=== PATIENT | male | born 1990 | race African-American/Black ===

== ENCOUNTER 2020-08-13 14:26 | Emergency (ER) | payer BC ==
[~2020-08-13] VITALS: Ht 177.8 cm; Wt 72.7 kg
[~2020-08-13 14:26] MED LIST: NO HOME MEDICATIONS
[2020-08-13 14:33] VITALS: BP 124/71; TEMP 98.4
[2020-08-13] MEDS ORDERED: VALTREX 50500 MG/TAB PO (15:06)
[2020-08-13 15:15] VITALS: PULSE 80
== END 2020-08-13 15:15 | disposition home or self-care (01) ==
LOC: COL.ER 14:26
DX: B00.9 Herpesviral infection, unspecified (principal)

== ENCOUNTER 2020-10-26 18:13 | Emergency (ER) | payer BC ==
[~2020-10-26] VITALS: Ht 177.8 cm; Wt 72.7 kg
[~2020-10-26 18:13] MED LIST changes: +VALTREX 50500 MG/TAB PO
[2020-10-26 18:17] VITALS: TEMP 98.3
[2020-10-26 18:47] LABS: GRAN # 1.6 (1.4-6.5); LYMPH # 1.3 (1.2-3.4); LYMPH % 39.5 % (20.0-51.0); MEAN CELL VOLUME 86 fl (80.0-100.0); MEAN CORPUSCULAR HEMOGLOBIN 29 pg (27.0-31.0); MEAN CORPUSCULAR HGB CONC 34 g/dl (33.0-37.0); MONO # 0.5 (0.1-0.6); MONO % 14.5 % (1.7-9.3); PLATELET COUNT 172 K/mm3 (130-400); RED BLOOD COUNT 5.49 M/mm3 (4.20-5.60); REDCELL DISTRIBUTION WIDTH-CV 12.7 % (11.5-14.5)
[2020-10-26 19:05] LABS: ALBUMIN 4.1 gm/dL (3.5-5.0); BILIRUBIN,TOTAL 0.3 mg/dL (0.0-1.0); C-REACTIVE PROTEIN 0.7 mg/dL (0.0-0.9); CALCIUM 8.9 mg/dL (8.4-10.2); CREATININE, serum 0.95 (0.66-1.25); POTASSIUM 3.4 mmol/L (3.4-5.0); TOTAL PROTEIN 7.5 gm/dL (6.4-8.2)
[2020-10-26] MEDS ORDERED: CEPHALEXIN500 M1 PO ×2 (19:43)
[2020-10-26 20:02] VITALS: BP 128/84; PULSE 86
== END 2020-10-26 20:03 | disposition home or self-care (01) ==
LOC: COL.ER 18:13
PROVIDERS: Nurse Practitioner Primary Care
DX: U07.1 COVID-19 (principal)
CPT/HCPCS: J7030

== ENCOUNTER 2021-01-06 13:47 | Emergency (ER) | payer BC ==
[~2021-01-06 13:47] MED LIST changes: +CEPHALEXIN500 M1 PO
[2021-01-06 13:59] VITALS: BP 151/87; PULSE 69; TEMP 98.1
== END 2021-01-06 15:15 | disposition home or self-care (01) ==
LOC: COL.ER 13:47
DX: S60.011A Contusion of right thumb without damage to nail, initial encounter (principal); W23.1XXA Caught, crushed, jammed, or pinched between stationary objects, initial encounter

== ENCOUNTER 2021-01-10 12:20 | Emergency (ER) | payer BC ==
[~2021-01-10] VITALS: Ht 177.8 cm; Wt 75.0 kg
[2021-01-10 12:27] VITALS: TEMP 98
[2021-01-10 13:56] VITALS: BP 121/83; PULSE 65
== END 2021-01-10 13:58 | disposition home or self-care (01) ==
LOC: COL.ER 12:20
DX: S60.011A Contusion of right thumb without damage to nail, initial encounter (principal); W23.1XXA Caught, crushed, jammed, or pinched between stationary objects, initial encounter

== ENCOUNTER 2021-02-13 07:15 | Emergency (ER) | payer BC ==
[~2021-02-13] VITALS: Ht 177.8 cm; Wt 75.0 kg
[2021-02-13 07:58] VITALS: BP 140/81; TEMP 98.3
[2021-02-13 08:51] VITALS: PULSE 81
== END 2021-02-13 08:51 | disposition home or self-care (01) ==
LOC: COL.ER 07:15
DX: B34.9 Viral infection, unspecified (principal); Z20.822 Contact with and (suspected) exposure to COVID-19